=== PATIENT | female | born 1970 | race Caucasian/White ===

== ENCOUNTER 2016-11-17 18:46 | Emergency (ER) | payer SELFPAY ==
[~2016-11-17] VITALS: Ht 157.5 cm; Wt 86.3 kg
[2016-11-17 19:22] VITALS: Ht 157.5 cm; Wt 86.3 kg
[2016-11-17] MEDS ORDERED: ONDANSETRON 4 MG INJ IV STA (20:50)
[2016-11-17] MEDS ORDERED: SOD CHLORIDE 0.9% 500 ML IV ONE (21:00)
[2016-11-17] MEDS ORDERED: MECLIZINE 12.5 MG TAB PO ONE (21:00)
[2016-11-17 21:18] LABS: ADD SCAN DIFF NO
[2016-11-17 21:22] LABS: BASOPHILS % 0.4 % (0.0-2.0); EOSINOPHILS # 0.3 10^3/ul (0.0-0.5); EOSINOPHILS % 2.7 % (0.0-7.0); HEMOGLOBIN 12.4 g/dl (12.0-16.0); LYMPHOCYTES % 32.3 % (15.0-51.0); MEAN CORPUSCULAR HEMOGLOBIN 28.7 pg (29.0-33.0); MEAN CORPUSCULAR HGB CONC 31.8 g/dl (32.0-37.0); MEAN CORPUSCULAR VOLUME 90.3 fl (82.0-101.0); MEAN PLATELET VOLUME 9.9 fl (7.4-10.4); MONOCYTE # 0.7 10^3/ul (0.3-0.9); MONOCYTES % 7.9 % (0.0-11.0); NEUTROPHIL # 5.3 10^3/ul (1.6-7.5); NEUTROPHILS % 56.4 % (39.0-77.0); PLATELET COUNT 325 10^3/UL (140-415); RED BLOOD COUNT 4.32 10^6/ul (4.20-5.40); RED CELL DISTRIBUTION WIDTH 14.2 % (11.5-14.5); WHITE BLOOD COUNT 9.4 10^3/ul (4.8-10.8)
--- NOTE | 2016-11-17 21:33 | RADRPT ---
PROCEDURE: CT brain without contrast CLINICAL INDICATION: Vertigo. Dizziness TECHNIQUE: A CT of the brain was performed utilizing axial sections from the skull base through th e vertex without contrast. Sagittal and coronal images were also reformatted. The exam CTDIvol = 47. 66 mGy and DLP = 762.52 mGy-cm. COMPARISON: None available FINDINGS: No acute intracranial hemorrhage is identified. There is no mass effect or midline shift. No extra -axial fluid collection is seen. The ventricles and sulci are within normal limits for size and con figuration. The density of the brain is within normal limits. Walter-white differentiation is preser charan. The osseous structures are unremarkable. The mastoid air cells and visualized paranasal sinuses are clear. RPTAT:HJJR IMPRESSION: Unremarkable noncontrast CT of the brain. Physician Aziza Date Time Electronically viewed and signed by Physician Aziza on 11/17/2016 21:33 /
[2016-11-17 21:38] LABS: ADD UMIC NO; URINE BILIRUBIN (Dip) NEGATIVE (NEGATIVE); URINE BLOOD (Dip) NEGATIVE (NEGATIVE); URINE COLOR LT. YELLOW (YELLOW); URINE GLUCOSE (Dip) NEGATIVE (NEGATIVE); URINE KETONES (Dip) NEGATIVE (NEGATIVE); URINE LEUKOCYTE ESTERASE (Dip) NEGATIVE (NEGATIVE); URINE NITRITE (Dip) NEGATIVE (NEGATIVE); URINE TOTAL PROTEIN (Dip) NEGATIVE (NEGATIVE); URINE UROBILINOGEN (Dip) 0.2 E.U./dL (0.1-1.0)
[2016-11-17 21:43] LABS: ALBUMIN/GLOBULIN RATIO 1.61; BILIRUBIN,INDIRECT 0.1 mg/dl (0-1.1); BILIRUBIN,TOTAL 0.1 mg/dl (0.2-1.3); CALCIUM 9.3 mg/dl (8.4-10.2); CREATININE 0.76 mg/dl (0.44-1.00); POTASSIUM 3.7 mmol/L (3.5-5.1); TOTAL PROTEIN 8.1 g/dl (6.1-8.1)
[2016-11-17] MEDS ORDERED: MECL12.574 PO (23:27)
[2016-11-17] MEDS ORDERED: IBUP-1542 PO (23:27)
--- NOTE | 2016-11-17 23:35 | ERD ---
ER Documentation Chief Complaint Date/Time DATE: 11/17/16 TIME: 23:32 Chief Complaint dizziness since . HPI Patient is a 46-year-old female who presents to the emergency department with dizziness which started 4 days ago. She states that her dizziness is worse with movement of her head as well as when looking up or down. Patient describes the dizziness to be episodic in nature. Patient denies any recent traumas or falls. Patient does report a headache which started this morning. She states she took ibuprofen with moderate alleviation of symptoms. Patient does report nausea and vomiting. She denies any photophobia or phonophobia. Patient denies any chest pain, shortness of breath, syncopal episodes or loss consciousness. Patient does report right ear fullness however no pain. She denies any fevers, chills, cough, rhinorrhea, throat pain or abdominal pain. No recent travel. No sick contacts. ROS All systems reviewed and are negative except as per history of present illness. Medications Home Meds Active Scripts Ibuprofen* (Motrin*) 600 Mg Tab, 600 MG PO Q6, #20 TAB Prov:ANTHONY JOHNSON PA-C 11/17/16 Meclizine Hcl* (Antivert*) 12.5 Mg Tab, 12.5 MG PO Q6H Y for DIZZINESS, #20 TAB Prov:ANTHONY JOHNSON PA-C 11/17/16 Allergies Allergies: Coded Allergies: No Known Allergy (Unverified , 11/17/16) PMhx/Soc Medical and Surgical Hx: pt denies Medical Hx History of Surgery: Yes (HERNAN) Anesthesia Reaction: No Hx Alcohol Use: No Hx Substance Use: No Hx Tobacco Use: No Smoking Status: Never smoker Physical Exam Vitals Vital Signs Date Time Temp Pulse Resp B/P Pulse Ox O2 Delivery O2 Flow Rate FiO2 11/17/16 23:54 97.7 57 20 125/66 100 Room Air 11/17/16 19:22 98.3 57 20 148/68 98 Physical Exam GENERAL: Well-developed, well-nourished female. Appears in no acute distress. Speaking in full sentences HEAD: Normocephalic, atraumatic. No deformities or ecchymosis. EYE: Pupils equal, round, and reactive to light. EOMs intact. No conjunctival erythema. No eye discharge. ENT: External ear without any masses or tenderness. Auditory canals clear bilaterally. TM visualized bilaterally, non-erythematous, non-bulging. Nasal mucosa pink with no discharge. Oropharynx is pink without any tonsillar erythema or exudates. No uvula deviation. No kissing tonsils. NECK: Supple. No meningismus. Normal ROM of the neck. LUNG: Clear to auscultation bilaterally. No rhonchi, wheezing, rales or coarse breath sounds. HEART: Regular rate and rhythm. No murmurs, rubs or gallops. BACK: No midline tenderness. EXTREMITIES: Equal pulses bilaterally. No peripheral clubbing, cyanosis or edema. No unilateral leg swelling. NEUROLOGIC: Alert and oriented x3, cooperative. Mood and affect appropriate to situation. Cranial nerves II through XII are grossly intact. Normal speech. Motor exam: 5/5 strength in upper and lower extremities. Sensory exam: Sensation intact to light touch on all four extremities. Cerebellar function exam: No dysmetria on yobfuq-cx-ifam test. Steady gait. No pronator drift. SKIN: Normal color. Warm and dry. No rashes or lesions. Result Diagram: 11/17/16210411/17/162104 Results 24 hrs Laboratory Tests Test 11/17/16 21:05 White Blood Count 9.410^3/ul Red Blood Count 4.3210^6/ul Hemoglobin 12.4g/dl Hematocrit 39.0% Mean Corpuscular Volume 90.3fl Mean Corpuscular Hemoglobin 28.7pg Mean Corpuscular Hemoglobin Concent 31.8g/dl Red Cell Distribution Width 14.2% Platelet Count 68025^3/UL Mean Platelet Volume 9.9fl Neutrophils % 56.4% Lymphocytes % 32.3% Monocytes % 7.9% Eosinophils % 2.7% Basophils % 0.4% Nucleated Red Blood Cells % 0.0/100WBC Neutrophils # 5.310^3/ul Lymphocytes # 3.010^3/ul Monocytes # 0.710^3/ul Eosinophils # 0.310^3/ul Basophils # 0.010^3/ul Nucleated Red Blood Cells # 0.010^3/ul Urine Color LT. YELLOW Urine Clarity CLEAR Urine pH 5.5 Urine Specific [place] >=1.030 Urine Ketones NEGATIVE Urine Nitrite NEGATIVE Urine Bilirubin NEGATIVE Urine Urobilinogen 0.2 E.U./dL Urine Leukocyte Esterase NEGATIVE Urine Hemoglobin NEGATIVE Urine Glucose NEGATIVE% Urine Total Protein NEGATIVE Sodium Level 147mmol/L Potassium Level 3.7mmol/L Chloride Level 109mmol/L Carbon Dioxide Level 27mmol/L Anion Gap 15 Blood Urea Nitrogen 12mg/dl Creatinine 0.76mg/dl Glucose Level 100mg/dl Calcium Level 9.3mg/dl Total Bilirubin 0.1mg/dl Direct Bilirubin 0.00mg/dl Indirect Bilirubin 0.1mg/dl Aspartate Amino Transf (AST/SGOT) 26IU/L Alanine Aminotransferase (ALT/SGPT) 39IU/L Alkaline Phosphatase 88IU/L Total Protein 8.1g/dl Albumin 5.0g/dl Globulin 3.10g/dl Albumin/Globulin Ratio 1.61 Current Medications Medications (Trade) Dose Ordered Sig/Annamarie Route PRN Reason Start Time Stop Time Status Last Admin Dose Admin Sodium Chloride (NS) 500 ml @ 500 mls/hr Q1H ONCE IV 11/17/16 21:00 11/17/16 21:59 DC 11/17/16 21:07 Ondansetron HCl (Zofran Inj) 4 mg ONCE STAT IV 11/17/16 20:50 11/17/16 20:53 DC 11/17/16 21:06 Meclizine HCl (Antivert) 12.5 mg ONCE ONCE PO 11/17/16 21:00 11/17/16 21:01 DC 11/17/16 21:06 Procedures/MDM ED COURSE: The patient was stable throughout ED course. I kept the patient and/or family informed of laboratory and diagnostic imaging results throughout the ED course. EKG: Read by Dr. Whitlock, attending physician. EKG shows sinus bradycardia with fusion complexes at a rate of 55 bpm. No arrhythmias, acute ST elevations noted. DIAGNOSTIC IMAGING: Read by radiologist Patient: KINDAR ALMENDAREZ : 1970 Age: 46 Sex: F MR #: [id number] DOS: 11/17/162049 Ordering MD: ANTHONY JOHNSON PA-C Location: [facility] Room/Bed: PROCEDURE: CT brain without contrast CLINICAL INDICATION: Vertigo. Dizziness TECHNIQUE: A CT of the brain was performed utilizing axial sections from the skull base through the vertex without contrast. Sagittal and coronal images were also reformatted. The exam CTDIvol = 47.66 mGy and DLP = 762.52 mGy-cm. COMPARISON: None available FINDINGS: No acute intracranial hemorrhage is identified. There is no mass effect or midline shift. No extra-axial fluid collection is seen. The ventricles and sulci are within normal limits for size and configuration. The density of the brain is within normal limits. Walter-white differentiation is preserved. The osseous structures are unremarkable. The mastoid air cells and visualized paranasal sinuses are clear. RPTAT:HJJR IMPRESSION: Unremarkable noncontrast CT of the brain. Physician Aziza Date Time Electronically viewed and signed by Physician Aziza on 11/17/2016 21:33 JR/ CC: ANTHONY JOHNSON PA-C MEDICATIONS GIVEN: Meclizine, Zofran Patient tolerated medication well with no adverse reactions. Patient reported improvement in pain. MEDICAL DECISION MAKING: This is a 46-year-old female who presents with dizziness 4 days. Vital signs were reviewed. Patient was afebrile. Patient was not hypoxic. Patient states that the dizziness is episodic in nature. The dizziness is worse with moving her eyes or moving her head. Patient also reported right ear fullness. ENT exam was normal. Full neuro exam was normal. EKG was within normal limits. CT brain was unremarkable. CBC showed no evidence of systemic infection or severe anemia. CMP showed no evidence of electrolyte abnormalities, severe acidosis, alkalosis, renal failure, or liver disease. Slight elevation in sodium noted. Given these findings, the patients presentation is most consistent with benign paroxysmal positional vertigo vs Menieres disease. I have a much lower clinical concern for intracranial hemorrhage, cerebral infarct, intracranial mass, multiple sclerosis, labyrinthitis, ear foreign body or acute otitis media. PRESCRIPTIONS: Meclizine Zofran DISCHARGE: At this time, patient is stable for discharge and outpatient management. I advised the patient that she will need to follow up with an ENT specialist for further management of her symptoms as I am unable to rule out inner ear pathology/disorders at this time. Patient provided with referral information. Patient advised to reduce salt intake. Patient given a copy of all imaging and lab work obtained today. I have instructed the patient to follow-up with his/ her primary care physician in 1-2 days. I have instructed the patient to promptly return to the ER at any time for any new or worsening symptoms including increased increased pain, fever, nausea, vomiting, numbness, weakness , slurred speech, LOC. The patient and/or family expressed understanding of and agreement with this plan. All questions were answered. Home care instructions were provided. Departure Diagnosis: Primary Impression: Vertigo Additional Impression: Ear fullness Laterality: unspecified laterality Qualified Code: H93.8X9 - Ear fullness, unspecified laterality Condition: Stable Patient Instructions: Inner Ear Problems: Causes of Dizziness (Vertigo) Referrals: SHARONDA BLAKE MD, HAYWARD L. M.D. LANDMAN, MICHAEL D MD NAMAZIE, ALI R MD PATEL,TRISHA GALLOWAY,TUAN Apple MD [facility] YOU HAVE RECEIVED A MEDICAL SCREENING EXAM AND THE RESULTS INDICATE THAT YOU DO NOT HAVE A CONDITION THAT REQUIRES URGENT TREATMENT IN THE EMERGENCY DEPARTMENT. FURTHER EVALUATION AND TREATMENT OF YOUR CONDITION CAN WAIT UNTIL YOU ARE SEEN IN YOUR DOCTORS OFFICE WITHIN THE NEXT 1-2 DAYS. IT IS YOUR RESPONSIBILITY TO MAKE AN APPOINTMENT FOR FOLOW-UP CARE. IF YOU HAVE A PRIMARY DOCTOR --you should call your primary doctor and schedule an appointment IF YOU DO NOT HAVE A PRIMARY DOCTOR YOU CAN CALL OUR PHYSICIAN REFERRAL HOTLINE AT IF YOU CAN NOT AFFORD TO SEE A PHYSICIAN YOU CAN CHOSE FROM THE FOLLOWING [facility] CLINICS [facility] [address] [facility] [address] [facility] [address] [facility] [facility] [address] [facility] [address] [facility] [address] [facility]. [facility]. [address] [facility]. [facility] YOU HAVE RECEIVED A MEDICAL SCREENING EXAM AND THE RESULTS INDICATE THAT YOU DO NOT HAVE A CONDITION THAT REQUIRES URGENT TREATMENT IN THE EMERGENCY DEPARTMENT. FURTHER EVALUATION AND TREATMENT OF YOUR CONDITION CAN WAIT UNTIL YOU ARE SEEN IN YOUR DOCTORS OFFICE WITHIN THE NEXT 1-2 DAYS. IT IS YOUR RESPONSIBILITY TO MAKE AN APPOINTMENT FOR FOLOW-UP CARE. IF YOU HAVE A PRIMARY DOCTOR --you should call your primary doctor and schedule and appointment IF YOU DO NOT HAVE A PRIMARY DOCTOR YOU CAN CALL OUR PHYSICIAN REFERRAL HOTLINE AT . IF YOU CAN NOT AFFORD TO SEE A PHYSICIAN YOU CAN CHOSE FROM THE FOLLOWING [facility] INSTITUTIONS: [facility] [address] [place] [address] [facility] [address] [place] [address] [facility] [address] [place] [address] Additional Instructions: Call your primary care doctor TOMORROW for an appointment during the next 1-2 days.See the doctor sooner or return here if your condition worsens before your appointment time. Patient will need to follow-up with the ENT specialist for further management of her vertigo and ear fullness. See referral list. ANTHONY JOHNSON PA-C Nov 17, 2016 23:35
[2016-11-17 23:54] VITALS: BP 125/66; PULSE 57; RESP 20; TEMP 97.7
== END 2016-11-17 23:55 | disposition home or self-care (01) ==
LOC: FTE 18:46
DX: R42 Dizziness and giddiness (principal); H93.8X9 Other specified disorders of ear, unspecified ear
CPT/HCPCS: 36415; 70450; 80053; 81003; 85025; 93005; 96374; 99285; J2405; J7040